=== PATIENT | male | born 1945 | race Caucasian/White ===

== ENCOUNTER 2016-05-14 07:19 | Emergency (ER) | payer MEDICARE, OTHER ==
[2016-05-14] MEDS ORDERED: IOPAMIDOL 300 (61%) 100 ML VIAL IV ONE (07:20)
[2016-05-14 07:51] LABS: ABSOLUTE NEUTROPHIL COUNT 6.3 K/mm3 (1.8-7.7); BASO # 0.1 K/mm3 (0.0-0.2); BASO % 0.8 % (0.2-1.0); EOS # 0.5 (0.0-0.5); EOS % 6.2 % (0.9-2.9); HEMATOCRIT 42.9 % (32.0-52.0); IMM NEUT # 0.1 K/mm3 (0-0.2); IMM NEUT% 0.9 % (0-1); LYMPH # 1.3 (1.0-4.8); LYMPH % 14.4 % (15-45); MEAN CELL VOLUME 96.8 fl (80.0-94.0); MEAN CORPUSCULAR HEMOGLOBIN 29.3 pg (27.0-31.0); MEAN CORPUSCULAR HGB CONC 30.3 g/dl (33.0-37.0); MEAN PLATELET VOLUME 9.5 fl (7.4-10.4); MONO # 0.5 (0.0-0.8); MONO % 5.9 % (4-12); NEUT % 71.8 % (43-75); PLATELET COUNT 241 K/mm3 (130-400)
[2016-05-14] MEDS ORDERED: ONDANSETRON 4 MG/2ML 2 ML VIAL ONE (07:55)
[2016-05-14] MEDS ORDERED: LACTATED RINGERS 1,000 ML ONE (07:55)
[2016-05-14] MEDS ORDERED: FENTANYL 100 MCG/2 ML VIAL ONE ×2 (07:55→08:33)
[2016-05-14 08:08] LABS: ALBUMIN 3.2 gm/dL (3.5-5.7); CALCIUM 8.5 mg/dL (8.6-10.3)
[2016-05-14 08:11] LABS: SPECIFIC GRAVITY 1.025 (1.001-1.030); URINE APPEARANCE CLEAR; URINE BILIRUBIN NEGATIVE (NEGATIVE); URINE BLOOD 3+ (NEGATIVE); URINE COLOR YELLOW; URINE GLUCOSE (UA) NEGATIVE (NEGATIVE); URINE LEUKOCYTE ESTERASE NEGATIVE (NEGATIVE); URINE NITRITE NEGATIVE (NEGATIVE); URINE PROTEIN TRACE (NEGATIVE); URINE UROBILINOGEN NORMAL (0-1 mg/dl)
[2016-05-14 08:19] LABS: URINE BACTERIA NONE SEEN; URINE EPITHELIAL CELLS 0-2 /hpf
--- NOTE | 2016-05-14 08:37 | US ---
EXAMINATION: Limited gallbladder ultrasound examination was performed. CLINICAL INDICATION: Right upper quadrant pain. COMPARISON: None FINDINGS: Gallbladder: 7.5 cm in length. Cholelithiasis:None Gallbladder wall thickness: 2 millimeters. Pericholecystic fluid: Absent Common bile duct:Not dilated and measures 4 millimeters. Sonographic Velez's sign: None elicited. Patient is medicated however. IMPRESSION: Normal gallbladder ultrasound. The findings were uploaded to the electronic medical record for review at approximately 8:37 AM 05/14/2016
--- NOTE | 2016-05-14 10:07 | CT ---
EXAMINATION: Contrast enhanced CT scan of the abdomen and pelvis. CLINICAL INDICATION: Right-sided abdominal pain since 3:00 AM. COMPARISON: Prior exam dated 05/13/2014. TECHNIQUE: Oral contrast: None Following uneventful administration of 100 mL of Isovue 300, intravenously axial images were acquired from just above the domes of the diaphragm to the iliac crest. A CT scan of the pelvis was also obtained from the iliac crest to the initial tuberosities. Stacked axial, sagittal, and coronal images were reviewed. Findings: Abdomen CT: (Contrast-enhanced): The lung bases exhibit mild bibasilar atelectasis. There slight elevation of the right hemidiaphragm. No pleural effusion is identified. Scattered foci of peripheral pleural/peripheral scarring are noted. There are coronary vascular calcifications. There is no pericardial effusion. The liver exhibits a small cyst within the lateral segment left lobe which is unchanged. The gallbladder is within normal limits. There is no evidence of biliary obstruction. The spleen size and attenuation are within normal limits. The pancreas is normal in size and contours. No inflammatory stranding is identified. The pancreatic duct is unremarkable. The adrenals are unremarkable. There is right hydronephrosis and hydroureter. Small punctate calcification is suggested at the right ureterovesicular junction. Very mild perinephric stranding is noted. Mild patchy enhancement of the renal cortex is present. The left kidney is unremarkable. After chronic plaquing of the abdominal aorta is noted. There is no aneurysmal dilatation. The stomach is unremarkable. The visualized segments of small and large bowel are within normal limits. There are numerous lower thoracic/upper lumbar compression fractures which have developed since 2014. There is mild kyphosis at the thoracolumbar junction. Sclerosis is noted which may reflect subacute findings at L1-L2. Severe compression deformity of L4 is unaltered. There is inferior end plate sclerosis/compression changes of the L5 vertebra. Pelvic CT: (Contrast -enhanced): The bladder contours are within normal limits. The distal left ureter is unremarkable. The prostate is normal in size. No adenopathy is identified. Moderate after chronic plaquing the iliac vessels are noted. There is no aneurysmal dilatation. There is diverticulosis of the colon without evidence of acute epididymitis. No inflammatory stranding is seen adjacent to the cecum. There is no evidence of inguinal hernia. No displaced pelvic fracture is identified. Prominent left inguinal lymph node is noted. IMPRESSION: 1. Approximately 2 mm calculus right ureterovesicular junction with right hydronephrosis. 2. Bibasilar atelectasis/pleural-parenchymal scarring. 3. Atherosclerosis. 4. Diverticulosis without evidence of acute diverticulitis. 5. Osteoporosis with multiple compression fractures. The findings were uploaded to the electronic medical record for review at approximately 10:07 AM 05/14/2016
[2016-05-14] MEDS ORDERED: KETOROLAC TROMETHAMINE 15 MG/ML VIAL ONE (10:45)
== END 2016-05-14 11:04 | disposition home or self-care (01) ==
LOC: ED 07:19
DX: N20.1 Calculus of ureter (principal); R10.11 Right upper quadrant pain; R11.0 Nausea; R06.02 Shortness of breath
CPT/HCPCS: 83690; 83880; 85025; 80053; 84484; 81001; 74177; 76705; 96375 ×2; 99284 ×2; 96374; J3010 ×2; J1885; J2405; J7120; Q9967

== ENCOUNTER 2016-08-17 18:17 | Inpatient (IN) | payer MEDICARE, OTHER ==
[2016-08-17] MEDS ORDERED: IOPAMIDOL 300 (61%) 100 ML VIAL IV ONE (18:18)
[2016-08-17] MEDS ORDERED: ONDANSETRON 4 MG/2ML 2 ML VIAL ONE (19:34)
[2016-08-17] MEDS ORDERED: FAMOTIDINE 10 MG/ML 2ML VIAL ONE (19:34)
[2016-08-17] MEDS ORDERED: SODIUM CHLORIDE 0.9% 1,000 ML ONE (19:34)
[2016-08-17 19:44] LABS: ABSOLUTE NEUTROPHIL COUNT 8.7 K/mm3 (1.8-7.7); BASO # 0.1 K/mm3 (0.0-0.2); BASO % 0.4 % (0.2-1.0); EOS # 0.3 (0.0-0.5); EOS % 2.8 % (0.9-2.9); HEMATOCRIT 29.9 % (32.0-52.0); HEMOGLOBIN 9.2 gm/l (14.0-18.0); IMM NEUT # 0.2 K/mm3 (0-0.2); IMM NEUT% 1.9 % (0-1); LYMPH # 1.6 (1.0-4.8); LYMPH % 13.5 % (15-45); MEAN CELL VOLUME 98.4 fl (80.0-94.0); MEAN CORPUSCULAR HEMOGLOBIN 30.3 pg (27.0-31.0); MEAN CORPUSCULAR HGB CONC 30.8 g/dl (33.0-37.0); MONO % 8.1 % (4-12); NEUT % 73.3 % (43-75); PLATELET COUNT 196 K/mm3 (130-400); RED CELL DISTRIBUTION WIDTH 14.8 % (11.5-14.5)
[2016-08-17 19:47] LABS: INR 0.98; PROTHROMBIN TIME 10.3 SECONDS (9.3-11.4)
[2016-08-17 19:57] LABS: ALB/GLOB RATIO 1.2 (>1.0); ALBUMIN 3.1 gm/dL (3.5-5.7); CALCIUM 8.7 mg/dL (8.6-10.3); LIPASE 28 U/L (11-82)
--- NOTE | 2016-08-17 21:02 | CT ---
Exam: CT abdomen and pelvis with contrast COMPARISON: 05/14/2016, 05/13/2014 INDICATION: Left upper quadrant pain. TECHNIQUE: CT examination of the abdomen and pelvis was obtained following the administration of 100 mL Isovue-300 intravenous contrast. FINDINGS: Severe vertebral body compression fractures are again identified, involving the vast majority of the visualized vertebral bodies. There is associated kyphosis of the thoracolumbar junction. No acute vertebral body compression fracture is identified. Few old rib fractures are noted bilaterally. No acute rib fracture is identified. Left inguinal lymphadenopathy has increased since examination 3 months ago. Lymph nodes measure up to 1.7 cm in short axis diameter, only 11 mm mm previously. Left external iliac lymph node is new, measuring up to 9 mm in short axis diameter. This was previously not visualized. No additional prominent lymph nodes are identified. Spleen is normal in size. A subcentimeter low-density lesion within the left lobe of liver is again noted and unchanged since 2014, presumably a cyst. Gallbladder is present within normal limits. Pancreas unremarkable. There is no adrenal mass. Kidneys are within normal limits. Right-sided hydronephrosis has resolved. Atheromatous and ectatic but nonaneurysmal aorta; it measures up to 2.7 cm distally. Urinary bladder unremarkable. Prostate is not enlarged. There is minor colonic diverticulosis without evidence of diverticulitis. There is no bowel obstruction, free air or free intraperitoneal fluid. Aside from mild bibasilar atelectasis or scarring, lung bases are clear. Prominent mediastinal and hilar lymph nodes are appreciated, measuring up to 14 mm in short axis diameter in the right paratracheal region and are similar to that seen previously. 16 mm AP window lymph node is noted and was not seen previously. Dense coronary artery calcifications are noted. Impression: 1. Bulky left inguinal lymphadenopathy, increased since 03/14/2017 exam. There is also mildly prominent left external iliac lymph node which is new. This could potentially be reactive if there is an infectious or inflammatory process within the left lower extremity, although metastatic disease or lymphoproliferative disorder are also considered in the differential diagnosis. The spleen is not enlarged. Prominent mediastinal lymph nodes are also appreciated. 2. No acute findings identified to abdominal pain. 3. Chronic changes as above, including vertebral body compression fractures, old rib fractures, presumed hepatic cyst and atheromatous aorta. Report called to Dr. Pedraza 8:47 PM 08/17/2016.
[2016-08-17 21:03] LABS: SPECIFIC GRAVITY 1.015 (1.001-1.030); URINE BILIRUBIN NEGATIVE (NEGATIVE); URINE BLOOD NEGATIVE (NEGATIVE); URINE GLUCOSE (UA) NEGATIVE (NEGATIVE); URINE LEUKOCYTE ESTERASE NEGATIVE (NEGATIVE); URINE NITRITE NEGATIVE (NEGATIVE); URINE PROTEIN NEGATIVE (NEGATIVE); URINE UROBILINOGEN NORMAL (0-1 mg/dl)
[2016-08-17 21:10] LABS: URINE APPEARANCE CLEAR; URINE COLOR STRAW
[2016-08-17] MEDS ORDERED: MORPHINE SULFATE 4 MG/ML SYRINGE ONE (21:23)
[2016-08-17] MEDS ORDERED: PANTOPRAZOLE SODIUM 40 MG VIAL IV ONE (21:23)
[2016-08-17 22:02] LABS: HEMATOCRIT 25.5 % (32.0-52.0); HEMOGLOBIN 7.9 gm/l (14.0-18.0); MEAN CELL VOLUME 98.5 fl (80.0-94.0); MEAN CORPUSCULAR HEMOGLOBIN 30.5 pg (27.0-31.0); RED CELL DISTRIBUTION WIDTH 14.8 % (11.5-14.5)
[2016-08-17] MEDS ORDERED: SODIUM CHLORIDE 0.9% 500 ML IV PRN (22:07)
[2016-08-17] MEDS ORDERED: HYDROcodone/ACETAM 7.5/325MG TABLET PO PRN (22:59)
[2016-08-17] MEDS ORDERED: [UNRECOGNIZED DRUG - OTHER] IH PRN (22:59)
[2016-08-17] MEDS ORDERED: IPRATROPIUM IH PRN (22:59)
[2016-08-17] MEDS ORDERED: MORPHINE SULFATE 15 MG PO SCH (23:00)
[2016-08-17] MEDS ORDERED: BLISTEX LIPSTICK 1 EACH TP PRN (23:03)
[2016-08-17] MEDS ORDERED: ACETAMINOPHEN 325 MG TABLET PO PRN (23:03)
[2016-08-17] MEDS ORDERED: MENTHOL/CETYLPYRD 1 EACH LOZENGE PO PRN (23:03)
[2016-08-17] MEDS ORDERED: BLOOD Y PLUMSET W/CASSETTE ONE (23:15)
[2016-08-17] MEDS ORDERED: MORPHINE SULFATE 15 MG TAB.PRT.SR PO SCH (23:15)
[2016-08-17] MEDS ORDERED: SODIUM CHLORIDE 0.9% 500 ML ONE (23:15)
[2016-08-17] MEDS ORDERED: CLONAZEPAM 0.5 MG TABLET PO SCH (23:18)
[2016-08-17] MEDS ORDERED: ACETAMINOPHEN PO PRN (23:56)
[2016-08-17] MEDS ORDERED: CAFFEINE 65 MG PO PRN (23:56)
[2016-08-17] MEDS ORDERED: ASPIRIN PO PRN (23:56)
[2016-08-17] MEDS ORDERED: [UNRECOGNIZED DRUG - OTHER] PO PRN (23:56)
[2016-08-18] MEDS: PANTOPRAZOLE SODIUM 40 MG VIAL IV SCH ×2 (00:14→08:44)
[2016-08-18] MEDS: SODIUM CHLORIDE 0.9% 100 ML IV PRN ×2 (00:16→02:06)
[2016-08-18 00:24] VITALS: BMI 24.8
[2016-08-18] MEDS ORDERED: BLOOD Y PLUMSET W/CASSETTE ONE (01:55)
[2016-08-18] MEDS ORDERED: SODIUM CHLORIDE 0.9% 500 ML ONE (01:56)
[2016-08-18 05:53] LABS: HEMATOCRIT 29.8 % (32.0-52.0); HEMOGLOBIN 9.6 gm/l (14.0-18.0); MEAN CELL VOLUME 93.7 fl (80.0-94.0); MEAN CORPUSCULAR HEMOGLOBIN 30.2 pg (27.0-31.0); MEAN CORPUSCULAR HGB CONC 32.2 g/dl (33.0-37.0); RED CELL DISTRIBUTION WIDTH 15.9 % (11.5-14.5)
[2016-08-18 05:59] LABS: CALCIUM 7.9 mg/dL (8.6-10.3)
[2016-08-18 07:29] VITALS: BP 87/58
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
[2016-08-18] MEDS ORDERED: PREDNISONE 10 MG TABLET PO SCH (09:00)
[2016-08-18] MEDS ORDERED: CLOPIDOGREL BISULFATE 75 MG TABLET PO SCH (09:00)
--- NOTE | 2016-08-18 10:14 | PDOC43 ---
- Subjective Chief Complaint: Melena Denies any further melena. Denies faintness. Has already scheduled his ride home and will not consider having endoscopy or surgical consult for his lymphadenopathy. - Objective Vital Signs Temperature 98 F 08/18/16 07:27 Pulse Rate 96 08/18/16 07:27 Respiratory Rate 17 08/18/16 07:27 Blood Pressure 87/58 08/18/16 07:27 O2 Saturation by Pulse Oximetry 90 08/18/16 07:27 Oxygen Delivery Method Room Air Oxygen Flow Rate 0 Intake and Output 08/17/16 08/18/16 08/19/16 06:59 06:59 06:59 Intake Total 2790 Output Total 450 Balance 2340 General: Alert, Oriented x3, Cooperative, No Acute Distress HEENT: Mucous membr. moist/pink Lungs: Clear to Auscultation Bilaterally Cardiovascular: Regular Rate and Rhythm Abdomen: Soft, Normal Bowel Sounds, No Tenderness, No Masses Extremities: Edema (trace), Normal Pulses Skin: Normal Color Neurological: Normal Speech Psych/Mental Status: Normal Mood Laboratory 08/18/16 05:20 08/18/16 05:20 08/18/16 08/17/16 05:20 21:34 RBC 3.18 L 2.59 L MCV 98.5 H MCHC 32.2 L 31.0 L RDW 15.9 H 14.8 H BUN 38 H Estimated GFR 83 H Calcium 7.9 L Current Medications: Current meds reviewed in EMR. - Problems: Assessment/Plan (1) Acute blood loss anemia Status: AcuteAssessment/Plan: due to presumed upper GI bleed, improved post transfusion. Endoscopy and f/u H/ H this afternoon recommended but refused. (2) GI bleed Qualifiers: Gastritis type: acute gastritis Status: AcuteAssessment/Plan: Presumed acute gastritis from ibuprofen. Appears to have stopped, patient refuses EGD. D/C ibuprofen and ASA. Daily PPI recommended (3) PUD (peptic ulcer disease) Status: ChronicAssessment/Plan: as above (4) Rheumatoid arthritis Qualifiers: Rheumatoid arthritis location: multiple sites Rheumatoid factor presence: unspecified presence Qualifier Code: (M06.9) Rheumatoid arthritis , unspecified Status: ChronicAssessment/Plan: continue prednisone, morphine, hydrocodone (5) CAD (coronary artery disease) Qualifiers: Coronary Disease-Associated Artery/Lesion type: [place] artery [place] vs. transplanted heart: [place] heart Associated angina: angina presence unspecified Qualifier Code: (I25.10) Atherosclerotic heart disease of [place] coronary artery without angina pectoris Status: ChronicAssessment/ Plan: stable, no evidence of ACS. Off of antihypertensives due to persistent asymptomatic hypotension. (6) HTN (hypertension), benign Status: ChronicAssessment/Plan: as above (7) Lymphadenopathy Status: AcuteAssessment/Plan: Noted on CT scan, suggestive of lympho-proliferative disease. Consult and biopsy recommended, pt prefers to f/u with Dr. Rueda as an outpatient. Disposition: Home
== END 2016-08-18 11:25 | disposition home or self-care (01) | DRG 812 ==
LOC: ED 18:17 → MS 21:32
PROVIDERS: ADMIT Family Medicine; ATTEND Family Medicine
PROC: 30233N1 Transfusion of Nonautologous Red Blood Cells into Peripheral Vein, Percutaneous Approach (ICD-10-PCS; principal; 2016-08-17)
DX: D62 Acute posthemorrhagic anemia (principal); K27.7 Chronic peptic ulcer, site unspecified, without hemorrhage or perforation; M06.9 Rheumatoid arthritis, unspecified; I25.10 Atherosclerotic heart disease of native coronary artery without angina pectoris; I10 Essential (primary) hypertension; R59.1 Generalized enlarged lymph nodes; E78.5 Hyperlipidemia, unspecified